=== PATIENT | female | born 1985 | race Caucasian/White ===

== ENCOUNTER 2018-07-23 01:27 | Emergency (ER) | payer SELFPAY ==
[~2018-07-23] VITALS: Ht 157.5 cm; Wt 68.0 kg
[2018-07-23 01:56] VITALS: BP 120/94
[2018-07-23] MEDS ORDERED: IBUPROFEN 600 MG TABLET PO ONE ×2 (03:00→03:21)
== END 2018-07-23 03:28 | disposition home or self-care (01) ==
LOC: ER 01:29
DX: S13.4XXA Sprain of ligaments of cervical spine, initial encounter (principal); S00.83XA Contusion of other part of head, initial encounter; S70.12XA Contusion of left thigh, initial encounter; S40.021A Contusion of right upper arm, initial encounter; Z98.51 Tubal ligation status; V43.52XA Car driver injured in collision with other type car in traffic accident, initial encounter; Y93.89 Activity, other specified; Y92.413 State road as the place of occurrence of the external cause; Y99.8 Other external cause status
CPT/HCPCS: 99283; A4606; Z7610